=== PATIENT | male | born 1945 | race Caucasian/White ===

== ENCOUNTER 2017-05-22 00:48 | Day surgery (SDC) | payer MEDICARE, OTHER ==
[~2017-05-22] VITALS: Ht 175.3 cm; Wt 99.0 kg
[2017-05-22] VITALS (12 sets, daily range): BP systolic 121–157; BP diastolic 55–80; PULSE 62–75; RESP 16–19
[~2017-05-22 00:48] MED LIST: ALPR0.254 PO; ASPI325T32 PO; ATOR40TA69 PO; CARV6.252 PO; CLOP75TA28 PO; DOXE10CA PO; ISOS20TA4 PO; LISI10TA PO; METF-496 PO; MULT-1018 PO; NITR0.4T SL; PARO10TA2 PO; TUMERIC PO
[2017-05-22 07:11] LABS: BASOPHILS % (AUTO) 0.1 % (0-3); EOSINOPHILS % (AUTO) 2.6 % (0-5); MONOCYTES % (AUTO) 8.7 % (4-12); Mean Corpuscular Hemoglobin 32.5 pg (27.0-35.0); Mean Corpuscular Volume 91.2 fL (81-100); NEUTROPHILS % (AUTO) 67.6 % (40-74); Platelet Count 208 bil/L (150-400)
[2017-05-22] MEDS ORDERED: 0.9% Sodium Chloride 1,000 ML IV SCH (07:30)
[2017-05-22] MEDS ORDERED: Nitroglycerin 50,000 mcg/250 mL D5W Premix IV ONE (08:09)
[2017-05-22] MEDS ORDERED: Heparin 1,000 Units/500 mL NS Premix IV ONE (08:09)
[2017-05-22] MEDS ORDERED: Heparin 1,000 Unit/mL 10 mL Inj ONE (08:10)
[2017-05-22] MEDS ORDERED: Heparin 10,000 Unit/1,000 mL NS Premix IV ONE ×2 (08:10→08:44)
[2017-05-22] MEDS ORDERED: fentaNYL-PF 50 mCg/mL 2 mL Inj ONE (08:39)
[2017-05-22] MEDS ORDERED: RANO500T3 PO (13:57)
--- NOTE | 2017-05-22 14:58 | NUR ---
JACKIE/HEART CATH RECOVERY Pt had stable recovery post heart cath, VSS on RA, groin site soft non tender. Pt and stated verbal understanding of discharge instructions regarding changes to medications, signs on worsening condition and follow up appointments. Pt and left with personal belongings, discharge paperwork, IV dc'd intact at approximately 1445.
--- NOTE | 2017-05-23 09:59 | CS94 ---
[address] [address] DIAGNOSTIC CARDIAC CATHETERIZATION PATIENT: ANTHONY HONEYCUTT : 1945 MR#: [id number] ADMIT: 05/22/2017 JOB ID: [id number] SERVICE DATE: 05/22/2017 PROCEDURES PERFORMED: 1. Graft angiography. 2. [place] coronary angiography. INDICATIONS: This is a gentleman with known coronary artery disease with progressive anginal symptoms. He presents for further assessment by cardiac catheterization. DESCRIPTION OF PROCEDURE: Informed consent was obtained. The patient was brought to catheterization laboratory. Bilateral groins were prepped and draped in a sterile fashion. The right femoral artery was anesthetized with lidocaine using a micropuncture kit, access was obtained and ultimately a 5-[place] sheath was advanced. After access was obtained, a 5-[place] JR-4 catheter was advanced over a wire and used to cannulate the [place] right coronary artery and angiography was obtained. This was also used to cannulate the two occluded grafts and this documented occlusion. This was then pulled around the arch and used to enter into the left subclavian artery. It was then exchanged out for an exchange length wire for a 5-[place] KIARA catheter which was then used to cannulate the SILVERIO and the left anterior descending are with angiographic views obtained. The KIARA catheter was removed over a wire. Next, a 5-[place] 3.5 catheter was advanced over a wire and used to cannulate the left coronary artery. Multiple angiographic views were obtained. This catheter was removed and the case was ended and an angiographic view of the right femoral access site was reviewed prior to achieving hemostasis with manual compression. There were no complications. FINDINGS: 1. Right coronary artery: This has been reported as a nondominant vessel and is completely occluded. There are location of two grafts which are documented as occluded. 2. SILVERIO to left anterior descending artery: This graft is widely patent. It touches down on the left anterior descending without evidence for pre-anastomotic nor significant post anastomotic stenoses. This vessel does provide a collateral to a diagonal branch with a very high-grade stenosis in the area of collateralization of the distal vessel. The collateralized diagonal branch also has evidence of a stenosis estimated in the range of 90%- 95%. [place] left coronary system: 1. Left main: This has evidence of a previous area of stenting which is widely patent without evidence for restenosis. The stent continues into the [place] circumflex artery without evidence for significant stenosis. Circumflex artery: After the stented area, there is an area of a stenosis appreciated around 50% in the circumflex artery. This appears stable compared to previous angiograms. The vessel continues down, giving rise to terminal branches, all of which have some degree of disease but no high-grade stenoses appreciated. In addition, the terminal branches are fairly small in caliber. There is an occluded and collateralized OM branch (chronic) 2. Left anterior descending artery: This is occluded at its ostium. There is a potential path of the left anterior descending artery appreciated; however, this is now covered by a stent. The vessel does appear to give rise to a diagonal branch as well which has some antegrade filling but appears to be severely diseased. HEMODYNAMICS: Aortic pressure 137/75, a heart rate 64. IMPRESSION: 1. Stable angiographic findings compared to cardiac catheterizations performed in 2013 and 2014 at outside institutions. 2. Widely patent stent extending from the left main into the circumflex artery. No clear changes from prior angiographic views although there is diffuse disease throughout the circumflex system. 3. Widely patent SILVERIO and LAD was no pre-anastomotic nor post-anastomotic stenoses appreciated. 4. The diagonal receives collaterals from the left anterior descending artery and collateralization is not optimal in this patient. This might be the cause of the patient's ongoing anginal symptoms despite the fact that he had revascularization of the circumflex artery. 5. There was an obtuse marginal branch which is occluded with some collateralization present, which was seen on prior cardiac catheterizations. PARMINDER
== END 2017-05-22 23:59 | disposition home or self-care (01) ==
LOC: SOUO 00:48
PROVIDERS: ATTEND Internal Medicine
DX: I25.118 Atherosclerotic heart disease of native coronary artery with other forms of angina pectoris (principal); I25.82 Chronic total occlusion of coronary artery; I25.2 Old myocardial infarction; E78.5 Hyperlipidemia, unspecified; Z95.1 Presence of aortocoronary bypass graft; Z95.5 Presence of coronary angioplasty implant and graft; I10 Essential (primary) hypertension; I44.1 Atrioventricular block, second degree; E11.9 Type 2 diabetes mellitus without complications; Z87.891 Personal history of nicotine dependence; Z79.82 Long term (current) use of aspirin; Z79.02 Long term (current) use of antithrombotics/antiplatelets; Z79.84 Long term (current) use of oral hypoglycemic drugs
CPT/HCPCS: 36415; 80048; 85025; 93005; 93455; 99152; 99153; C1769; C1894; J1200; J1644; J2060; J2250; J7030; Q9967